=== PATIENT | female | born 1975 | race Caucasian/White ===

== ENCOUNTER → 2023-07-15 13:26 | Outpatient (BNVA) | payer OTHER, SELFPAY | PROVIDERS: Visit Provider Physician Assistant | DX: S83.91XA Sprain of unspecified site of right knee, initial encounter (principal); W18.43XA Slipping, tripping and stumbling without falling due to stepping from one level to another, initial encounter | CPT/HCPCS: 73564; 99203 ==

== ENCOUNTER → 2023-07-23 15:51 | Outpatient (BNVA) | payer OTHER, SELFPAY | PROVIDERS: Visit Provider Physician Assistant | DX: S83.91XA Sprain of unspecified site of right knee, initial encounter (principal); W18.43XA Slipping, tripping and stumbling without falling due to stepping from one level to another, initial encounter | CPT/HCPCS: 99214 ==

== ENCOUNTER → 2023-08-06 15:52 | Outpatient (BNVA) | payer OTHER, SELFPAY | PROVIDERS: Visit Provider Physician Assistant | DX: S83.91XA Sprain of unspecified site of right knee, initial encounter (principal); W18.43XA Slipping, tripping and stumbling without falling due to stepping from one level to another, initial encounter | CPT/HCPCS: 99213 ==

== ENCOUNTER → 2023-08-20 15:46 | Outpatient (BNVA) | payer OTHER, SELFPAY | PROVIDERS: Visit Provider Physician Assistant | DX: S83.91XD Sprain of unspecified site of right knee, subsequent encounter (principal); W18.43XD Slipping, tripping and stumbling without falling due to stepping from one level to another, subsequent encounter | CPT/HCPCS: 99213 ==